=== PATIENT | female | born 1990 | race Caucasian/White ===

== ENCOUNTER 2024-07-12 01:49 | Emergency (ER) | payer MEDICAID ==
[~2024-07-12] VITALS: Ht 152.4 cm; Wt 77.4 kg
[2024-07-12] MEDS ORDERED: WELLBUTRIN XL150 MG (02:03)
[2024-07-12 02:04] LABS: BASOPHILS 0.7 % (0-2); EOSINOPHILS 0.3 % (0-6); HEMATOCRIT 38.5 % (35.0-50.0); HEMOGLOBIN 13.2 g/dL (12.0-18.0); LYMPHOCYTES 26.6 % (24-44); MCH 28.9 (27-36); MCHC 34.4 g/dl (30-36); MCV 84.1 fl (81-99); NEUTROPHILS 66.4 % (39-80); PLATELET COUNT 289 K/uL (140-440); RBC 4.57 M/ul (4.3-5.7); RDW 13.5 (10.5-15.0)
[2024-07-12] MEDS ORDERED: KAPSPARGO SPRIN25 MG (02:05)
[2024-07-12 02:14] LABS: INR 1.04 (0.80-1.30); PROTIME 12.9 Sec (11.2-14.2)
[2024-07-12] MEDS ORDERED: KETOROLAC TROMETHAMINE 30 MG/ML VIAL IV ONE (02:15)
[2024-07-12 02:30] LABS: ALBUMIN 3.8 g/dL (3.4-5.0); ALBUMIN/GLOBULIN RATIO 1.09 (1.1-2.4); ANION GAP 16.2 (7-21); BILIRUBIN, TOTAL 0.4 ng/dL (0.2-1.0); BUN/CREATININE RATIO 10.52 (6.0-28.6); CALCIUM 8.9 mg/dL (8.5-10.1); CREATININE, SERUM 0.95 mg/dL (0.55-1.02); POTASSIUM 3.2 mmol/L (3.5-5.1); PROTEIN, TOTAL 7.3 g/dL (6.4-8.2)
[2024-07-12 02:34] VITALS: BP 108/82
--- NOTE | 2024-07-12 11:54 | EKG ---
[facility] [address] [facility] [place] [address] Signed Normal sinus rhythm Cannot rule out Anterior infarct , age undetermined Abnormal ECG No previous ECGs available Confirmed by Holley Chun MD () on 07/12/2024 11:54:01 AM Electronically Signed By: HOLLEY CHUN MD 07/12/24 1154 PATIENT NAME: ESSENCE RAMIREZ FLACO Electrocardiogram DATE OF : 88 PHYSICIAN: HOLLEY CHUN MD REPORT #: [id number] REPORT IS CONFIDENTIAL AND NOT TO BE RELEASED WITHOUT AUTHORIZATION
== END 2024-07-12 02:34 | disposition left against medical advice (07) ==
LOC: ED 01:49
PROVIDERS: Family Medicine
DX: R07.9 Chest pain, unspecified (principal); I25.2 Old myocardial infarction; Z53.29 Procedure and treatment not carried out because of patient's decision for other reasons; Z88.0 Allergy status to penicillin; Z88.5 Allergy status to narcotic agent; Z88.8 Allergy status to other drugs, medicaments and biological substances
CPT/HCPCS: 36415; 80053; 83735; 83880; 84484; 85025; 85379; 85610; 93005; 93010; 99285-25